=== PATIENT | female | born 1940 | race Caucasian/White ===

== ENCOUNTER → 2016-07-20 | Outpatient (CLI) | payer MEDICARE, BC ==
--- NOTE | 2016-07-24 13:58 | RADIOLOGY REPORT PS360 ---
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 Is a tiny hypoechoic likely cystic lesion adjacent to the fibroadenoma. There is no definite cystic or solid lesion in the inner quadrant of the breast at the site of the possible asymmetric density on the mammogram. There is mild ductal hyperplasia. There is a borderline sized node in the axilla. 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
--- NOTE | 2016-08-19 16:27 | RADIOLOGY REPORT PS360 ---
DIG MAMM-DX UNI LT W/AVS W/CAD COMPARISON: Digital mammograms 07/09/2016 INDICATION: Additional problem-solving views of possible new asymmetric density left breast TECHNIQUE: Spot compression MLO and CC views and 90 degrees lateral view and exaggerated cc view FINDINGS: There is a faint round density in her quadrant again best seen on the cc view but not deftly pressing out on the spot compression CC view. It has fairly well-defined smooth borders with overall benign features. Ultrasound performed the same date show no definite ultrasound correlation at this location. IMPRESSION: Small 6 mm benign-appearing density inner quadrant without ultrasound correlation, recommend the patient return for 6 month follow-up left mammogram to sure interval stability of this likely benign lesion. BI-RADS CATEGORY: 3_Probably Benign-Short Term F/U RECOMMENDED FOLLOWUP: 6M 6MONTH FOLLOW-UP (A letter has been sent to the patient regarding results of the study.)
== END ==
LOC: RAD 13:24
DX: R92.8 Other abnormal and inconclusive findings on diagnostic imaging of breast (principal)
CPT/HCPCS: G0206-LT

== ENCOUNTER → 2017-02-25 | Outpatient (CLI) | payer MEDICARE, BC ==
--- NOTE | 2017-02-25 12:13 | RADIOLOGY REPORT PS360 ---
BONE DENSITOMETRY(HIP:LT SPINE HISTORY: POST MENOPAUSAL ORDERING PHYSICIAN: Solange Isbell MD PATIENT AGE: 76 years COMPARISON: None FINDINGS: The BMD measured at the AP spine L1 L4 is 0.975 g/cm squared with a T score of -1.7. This is considered Osteopenic according to the World Health Organization criteria. Fracture risk is Moderate. Treatment is advised. IMPRESSION: Osteopenia. Moderate fracture risk. Recommend follow-up exam February 2019
== END ==
LOC: RAD 10:30
DX: Z78.0 Asymptomatic menopausal state (principal)

== ENCOUNTER 2017-04-08 08:21 | Day surgery (SDC) | payer MEDICARE, BC ==
--- NOTE | 2017-04-08 10:36 | Operative Note ---
Colonoscopy ([facility]) Procedure date: 04/08/17 Date of : 38 Procedure:Colonoscopy Colonoscopy with cold and hot snare polypectomy with Endo Clip placement Indications: Mrs. Mora is a 77-year-old female who is here for initial screening colonoscopy. She does have some intermittent achy lower abdominal discomfort. She also has mostly normal bowel movements but has occasional constipation. She reports no rectal bleeding, weight loss or change in bowel habits. She reports no family history of colon cancer. Performing Provider: Kath Flanagan MD Referrring Provider: Bruce Goodrich M.D. Sedation: Fentanyl 150 mg IV/Versed 7 mg IV Procedure: Prior to the procedure, a history and physical exam was performed, and patient medications and allergies were reviewed. The risks and benefits of the procedure and the sedation options and risks were discussed with the patient. All questions were answered and informed consent was obtained. Patient identification and proposed procedure were verified by the physician and the nurse. The patient was placed in a left lateral decubitus position. Throughout the procedure, the patient's blood pressure, pulse, and oxygen saturations were monitored continuously. Findings: On digital rectal examination there was normal rectal tone. There were no external hemorrhoids. The colonoscope was introduced through the anal canal to the rectum and advanced to the cecum. The ileocecal valve and appendiceal orifice were identified. The scope was advanced a short distance into the ileum which appeared grossly normal. The scope was then withdrawn into the colon. There was a sessile 11 and 12 mm polyp in the cecum that appeared to be a serrated adenoma that was removed via cold snare polypectomy. The remaining cecum, ascending and transverse colon and mucosa were grossly normal. Within the descending colon at 80 cm from the pectinate line was a very large 28-30 mm pedunculated polyp. The larger 25 mm snare was used to remove this polyp using hot snare/snare cautery at the mid portion of the stalk with complete excision of the polyp. After this was completely excised, and Endo Clip was placed over the stalk to prevent post-polypectomy bleeding. There were scattered diverticuli throughout the descending and sigmoid colon (LEFT colon). The rectum itself was normal. Upon retroflexion within the rectum there were grade 1 internal hemorrhoids. Impressions: 1. Large 28-30 mm pedunculated descending colon polyp (80 cm from anal verge) rule out advanced adenoma 2. Sessile cecal polyprule out serrated adenoma 3. Left-sided diverticulosis 4. Grade 1 internal hemorrhoids Recommendations: I will follow up the polyp histology and recommend repeat screening/surveillance colonoscopy again in 1-2 years based upon the size and advanced nature of this large polyp. I will encourage a fiber bowel regimen on a long-term daily maintenance basis. Complications: None EBL (ml): 0 at 2631
[2017-04-08 14:04] VITALS: BP 98/59
== END 2017-04-08 11:40 | disposition home or self-care (01) ==
LOC: SDC 08:21
PROVIDERS: Internal Medicine Gastroenterology
PROC: 0DBM8ZX Excision of Descending Colon, Via Natural or Artificial Opening Endoscopic, Diagnostic (ICD-10-PCS; 2017-04-08)
PROC: 0DBH8ZX Excision of Cecum, Via Natural or Artificial Opening Endoscopic, Diagnostic (ICD-10-PCS; 2017-04-08)
PROC: 0DJD8ZZ Inspection of Lower Intestinal Tract, Via Natural or Artificial Opening Endoscopic (ICD-10-PCS; principal; 2017-04-08 09:30)
DX: Z12.11 Encounter for screening for malignant neoplasm of colon (principal); D12.4 Benign neoplasm of descending colon; D12.0 Benign neoplasm of cecum